=== PATIENT | male | born 1985 ===

== ENCOUNTER 2022-12-01 11:03 | Emergency (ER) | payer OTHER, SELFPAY ==
[2022-12-01 11:19] VITALS: BP 118/78; PULSE 80; RESP 18; TEMP 36.3; O2SAT 97; BMI 41.8
--- NOTE | 2022-12-01 11:40 | CRLHL7_ITS ---
For Patients: As a result of the Cures Act, medical imaging exams and procedure reports are released immediately into your electronic medical record. You may view this report before your referring provider. If you have questions, please contact your health care provider. INDICATION: Crush injury. Comparison: None Technique: Three-view study left middle finger. FINDINGS: A nondisplaced comminuted fracture tuft of the left middle finger. No displacement or angulation. Dictated by Johan Austin MD @ 12/01/2022 12:58:11 PM (Electronically Signed)
--- NOTE | 2022-12-01 12:12 | ED.UPPEXIN ---
HPI - Extremity Injury (Upper) General Chief Complaint: Extremity Pain/Injury, Upper Stated Complaint: WC in LT middle finger Time Seen by Provider: 12/01/22 11:18 History of Present Illness HPI narrative: This 37-year-old male comes in with an injury to his left middle finger. He was at work and got his finger caught between 2 objects causing a crush injury. He does not have an injury to his skin but does have some bruising on the palmar aspect of the distal portion of the left middle finger. He does not report any other injury. Related Data Previous Rx's Medication Instructions Recorded hydrocodone 5 mg-acetaminophen 325 1 tab PO Q4-6H PRN pain #6 tabs 12/01/22 mg tablet Allergies Allergy/AdvReac Type Severity Reaction Status Date / Time No Known Drug Allergies Allergy Verified 12/01/22 11:17 Review of Systems Status of ROS: Reports: 10 or more systems reviewed and unremarkable except as noted in History and below Narrative: Constitutional: No fevers, no weight gain or loss. Eyes: No discharge. No vision changes. HENT: No congestion, no sore throat, no ear pain. Cardiovascular: No chest pain, no palpitations. Respiratory: No shortness of breath, no wheezes, no cough. Gastrointestinal: No abdominal pain, no vomiting, no diarrhea. Genitourinary: No dysuria, no hematuria. Musculoskeletal: Normal range of motion. Injury to the left distal middle finger as described above. Skin: No rashes, no pruritis. Neurological: No dizziness, weakness, sensory change, speech change. Endo/Heme/Allergies: No bruising or bleeding. No polydipsia. Pysch: no suicidality, no anxiety, no insomnia. All other systems reviewed and are negative. PFSH PFSH Social History Smoking Status: Former smoker Do you use any of these nicotine containing products: None Second hand tobacco smoke exposure: No How often do you have a drink containing alcohol: 2-4 times a month How many standard drinks containing alcohol do you have on a typical day: 1 or 2 How often do you have six or more drinks on one occasion: Monthly AUDIT-C Alcohol total score: 4 Non-prescribed substance use: denies use service: No Exam Narrative: Exam Narrative: Constitutional: Well-developed, well-nourished, no acute distress. HEENT: Normocephalic, atraumatic. Neck: Normal range of motion. Nontender. Supple. Heart: Intact distal pulses. Lungs: No chest discomfort. No wheezes, rhonchi, or rales. Abdomen: Nontender. Back: Normal range of motion. Extremities: Normal range of motion. Swelling and bruising on the distal segment of the left middle finger. No subungual hematoma. Bruising is on the palmar aspect. No skin injury or compromise. Skin: Intact. No rash. Warm. No erythema or pallor. Neurologic: No altered sensation. No weakness. Alert and oriented. Psychiatric: No suicidality. No anxiety or depression. No insomnia. Nursing notes and vitals signs are reviewed. Const: Vital Signs, click to edit/add: Vital Signs - 24 hr 12/01/22 11:19 Temperature 97.3 F L Pulse Rate [Pulse Oximeter] 80 Respiratory Rate 18 Blood Pressure [Ri ght Upper Arm] 118/78 Pulse Oximetry 97 Oxygen Delivery Me thod Room Air Course Vital Signs Vital signs: Initial Vital Signs Temperature 97.3 F L 12/01/22 11:19 Temperature Source Temporal Artery Scan 12/01/22 11:19 Pulse Rate 80 12/01/22 11:19 Pulse Rhythm 12/01/22 11:19 Respiratory Rate 18 12/01/22 11:19 Blood Pressure 118/78 12/01/22 11:19 Blood Pressure Mean 91 12/01/22 11:19 Blood Pressure Position Supine 12/01/22 11:19 Pulse Oximetry 97 12/01/22 11:19 Oxygen Delivery Method 12/01/22 11:19 Vital Signs Temperature 97.3 F L 12/01/22 11:19 Pulse Rate 80 12/01/22 11:19 Respiratory Rate 18 12/01/22 11:19 Blood Pressure 118/78 12/01/22 11:19 Pulse Oximetry 97 12/01/22 11:19 Oxygen Delivery Method 12/01/22 11:19 Temperature 97.3 F L 12/01/22 11:19 Pulse Rate 80 12/01/22 11:19 Respiratory Rate 18 12/01/22 11:19 Blood Pressure 118/78 12/01/22 11:19 Pulse Oximetry 97 12/01/22 11:19 Oxygen Delivery Method 12/01/22 11:19 MDM - Extremity Injury (Upper) MDM Narrative Medical decision making narrative: This patient comes in with an injury to his left middle finger. X-ray imaging shows a tuft fracture with minimal or no displacement. He does not have a overlying skin injury where this would be considered an open fracture. I did advise him regarding what to do if he develops a subungual hematoma. He received a finger splint and a prescription for few tablets of [place]. Imaging Data XR L Middle Finger: My impression: Nondisplaced tuft fracture of the left middle finger. Discharge Plan Discharge Clinical Impression: Finger fracture, left Patient Disposition: Home, Self-Care Condition: Stable Instructions: Finger Fracture (ED) Additional Instructions: Wear splint for protection. Activity as tolerated. Use medication as needed and directed. Follow up with MD or return if worsening. Prescriptions: New hydrocodone-acetaminophen 5-325 mg tablet 1 tab PO Q4-6H PRN (Reason: pain) Qty: 6 0RF Stand Alone Forms: [employer] Info Instructions
== END 2022-12-01 12:31 | disposition home or self-care (01) ==
LOC: ED 12:28
PROVIDERS: Emergency Provider Emergency Medicine Emergency Medical Services
DX: S62.653A Nondisplaced fracture of middle phalanx of left middle finger, initial encounter for closed fracture (principal); W23.0XXA Caught, crushed, jammed, or pinched between moving objects, initial encounter
CPT/HCPCS: 29130; 73140; 99283; 99284